=== PATIENT | female | born 1935 | race Caucasian/White ===

== ENCOUNTER 2017-03-20 17:10 | Emergency (ER) | payer MEDICARE, BC ==
[2017-03-20 17:55] VITALS: BP 132/84
[2017-03-20] MEDS ORDERED: Lidocaine 1% 50 ML MDV INJECT ONE (20:43)
[2017-03-20] MEDS ORDERED: Lidocaine 1% 50 ML MDV ONE (20:48)
--- NOTE | 2017-03-20 22:01 | EDM.PDOC ---
<MariumKayleen velez F - Last Filed: 03/21/17 02:36> ED HPI GENERAL MEDICAL PROBLEM - General Chief Complaint: Laceration Stated Complaint: INJURED PINKY ON L HAND Time Seen by Provider: 03/20/17 19:24 - Related Data Allergies Allergy/AdvReac Type Severity Reaction Status Date / Time No Known Allergies Allergy Verified 03/20/17 17:54 Home Meds: Home Meds Digoxin 125 mcg PO DAILY 01/18/15 [History] Furosemide 40 mg PO DAILY 01/18/15 [History] Metoprolol Succinate [Toprol XL] 25 mg PO DAILY 01/18/15 [History] Potassium Chloride 20 meq PO DAILY 01/18/15 [History] Apixaban [Eliquis] 0 mg PO BID 03/20/17 [History] Cephalexin [Keflex] 500 mg PO TID #21 cap 03/20/17 [Rx] Diltiazem HCl [Taztia Xt] 240 mg PO DAILY 03/20/17 [History] ED SKIN PROCEDURES - Laceration/Wound Repair Left Proximal Ventral Finger Lac/Wound length In cm: 4 (left hand ventral 5th finger) Appearance: Subcutaneous, Irregular, Clean Distal NVT: Neuro & Vascular Intact, No Tendon Injury Anesthetic Type: Local Local Anesthesia - Lidocaine (Xylocaine): 1% Plain Local Anesthetic Volume: 4cc Skin Prep: Chlorhexidine (Hibiciens), Saline, Sterile Drape Exploration/Debridement/Repair: Wound Explored, No Foreign Material Found Closed with: Sutures Suture Size: 4-0 # of Sutures: 17 Suture Type: Nylon, Interrupted, Simple Suture Size: 4-0 # of Sutures: 7 Repaired with: Vicryl Sterile Dressing Applied: Nurse Complications: No - Splinting Left Upper Extremity Splint Site: hand and forearm Pre-Procedure NV Status: Normal Post-Procedure NV Status: Normal Splint Material: Other (orthoglass) Splint Design: Gutter (ulnar) Applied & Form Fitted By: Provider, Nurse Provider Post-Splint Application NV Check: NV Status Normal, Good Position Complications: No Course - Vital Signs Last Recorded V/S: Last Vital Signs Temp 98.4 F 03/20/17 17:42 Pulse 53 L 03/20/17 17:42 Resp 12 03/20/17 17:42 BP 132/84 03/20/17 17:42 Pulse Ox 95 03/20/17 17:42 - Orders/Labs/Meds Orders: Active Orders 24 hr Category Date Time Status Hand Comp Min 3V Lt [CR] Stat Exams 03/20/17 19:45 Taken Meds: Medications Discontinued Medications Generic Name Dose Route Start Last Admin Trade Name Carmelita PRN Reason Stop Dose Admin Lidocaine HCl 50 ml 03/20/17 20:43 03/20/17 21:00 Xylocaine 1% INJECT 03/20/17 20:44 50 ml ONETIME ONE Administration Lidocaine HCl Confirm 03/20/17 20:48 03/20/17 20:58 Xylocaine 1% Administered 03/20/17 20:49 Not Given Dose 50 ml .ROUTE .STK-MED ONE Departure - Departure Disposition: Home, Self-Care 01 Clinical Impression: Laceration of left little finger w/o foreign body w/o damage to nail Qualifiers: Encounter type: initial encounter Qualified Code(s): S61.217A - Laceration without foreign body of left little finger without damage to nail, initial encounter Open fracture of proximal phalanx of left little finger Qualifiers: Encounter type: initial encounter Fracture alignment: nondisplaced Qualified Code(s): S62.647B - Nondisplaced fracture of proximal phalanx of left little finger, initial encounter for open fracture - Discharge Information Prescriptions: Cephalexin [Keflex] 500 mg PO TID #21 cap Instructions: Laceration Care, Adult Referrals: Pati Moralse MD [Primary Care Provider] - Fidel Wright MD [Physician] - Forms: ED Department Discharge Additional Instructions: Keep your left hand clean and dry and covered, keep the splint on at all times, call Dr. Wright' office on Wednesday to get an appointment to be seen this week for recheck of the fracture, have the sutures removed in 7-[address] Wright' can take them out as well, take the antibiotics faithfully until they are finished, return to the ER if needed - My Orders Last 24 Hours: My Active Orders 03/20/17 19:45 Hand Comp Min 3V Lt [CR] Stat - Assessment/Plan Last 24 Hours: My Active Orders 03/20/17 19:45 Hand Comp Min 3V Lt [CR] Stat <Phil Campos - Last Filed: 03/21/17 06:58> ED HPI GENERAL MEDICAL PROBLEM - General Source of Information: Reports: Patient, Family History Limitations: Reports: No Limitations - History of Present Illness INITIAL COMMENTS - FREE TEXT/NARRATIVE: This is an 81-year-old female. She was doing her wash and she has a wringer type wash that squeezes the clothes to remove the excess water. Apparently she got her left hand caught in the wringer and she received a laceration to her left fifth finger on the palmar surface. The laceration goes from IP joint down to the MCP joint into the palm. When she arrived there was no active bleeding but obviously a large jagged laceration. She is able to flex her little finger and neurovascular is intact distally. Left Hand Pain Score (Numeric/FACES): 4 Past Medical History Other Musculoskeletal History: ankle, wrist Other Oncologic History: nose Social & Family History - Tobacco Use Smoking Status *Q: Never Smoker - Caffeine Use Caffeine Use: Reports: Tea - Recreational Drug Use Recreational Drug Use: No ED ROS GENERAL - Review of Systems Review Of Systems: See Below Constitutional: Denies: Fever, Chills HEENT: Reports: No Symptoms Respiratory: Reports: No Symptoms Cardiovascular: Reports: No Symptoms Endocrine: Reports: No Symptoms GI/Abdominal: Reports: No Symptoms : Reports: No Symptoms Musculoskeletal: Reports: Other (As per history of present illness) Skin: Reports: Other (As per history of present illness) Neurological: Reports: No Symptoms Psychiatric: Reports: No Symptoms Hematologic/Lymphatic: Reports: No Symptoms ED EXAM, SKIN/RASH Exam: See Below Exam Limited By: No Limitations General Appearance: Alert, WD/WN, No Apparent Distress Ears: Normal External Exam, Other (The patient is hard of hearing) Nose: Normal Inspection Throat/Mouth: Normal Inspection Head: Normocephalic Neck: Supple Respiratory/Chest: No Respiratory Distress Back Exam: Full Range of Motion Extremities: Other (Left hand has a very jagged laceration going from the IP joint down into the palm on the volar surface, rough estimate it appears to be approximately 10 cm, she does have flexion of that little finger, she does have a couple bruises on her other fingers noted but there are very mild, neurovascular is intact distally in all of her digits) Neurological: Alert, Oriented Psychiatric: Normal Affect, Normal Mood Skin: Warm, Dry Course - Radiology Interpretation Free Text/Narrative:: X-ray of the left hand shows a fracture at the base of the proximal phalanx that is nondisplaced - Re-Assessments/Exams Free Text/Narrative Re-Assessment/Exam: 03/21/17 06:57 I spoke to the patient regarding the finger fracture. We'll have to put her on some antibiotics as well as put her in a gutter splint to stabilize that fracture and she is going to follow up with the commission specialist this week for recheck for the fractured he can remove her sutures when there needed to be removed. She understands. Departure - Departure Time of Disposition: 21:53 Condition: Good
--- NOTE | 2017-03-21 12:53 | CR ---
Left hand: Four views of the left hand were obtained. Comparison: No prior hand exam. Joint space narrowing is noted within the wrist compatible with degenerative change. Bone density noted most likely due to old fracture off the distal navicular bone along the lateral side of the wrist. Degenerative change is noted at the CMC joint of the thumb. Joint space narrowing scattered within the MCP joints. More severe joint space narrowing is noted within the DIP and PIP joints. Acute fracture is identified within the base of the proximal phalanx of the fifth digit. No other acute abnormality is appreciated. Osteopenia is noted. Impression: 1. Degenerative change and osteopenia. Old navicular fracture. 2. Acute fracture within the base of the proximal phalanx of the left fifth finger. Diagnostic code #3
== END 2017-03-20 22:30 | disposition home or self-care (01) ==
LOC: JD.ED 17:10
DX: S62.647B Nondisplaced fracture of proximal phalanx of left little finger, initial encounter for open fracture (principal); S61.217A Laceration without foreign body of left little finger without damage to nail, initial encounter; W23.0XXA Caught, crushed, jammed, or pinched between moving objects, initial encounter
CPT/HCPCS: 12002; 12042; 13132; 29125; 73130-26-LT; 73130-LT; 99283-25

== ENCOUNTER 2019-03-13 09:29 | Emergency (ER) | payer MEDICARE, BC ==
[2019-03-13 10:07] VITALS: BP 144/81
[2019-03-13] MEDS ORDERED: Sodium Chloride 0.9% 10 ML Syringe FLUSH PRN (10:33)
--- NOTE | 2019-03-13 11:44 | US ---
Right lower extremity deep venous ultrasound: Duplex and color Doppler imaging was obtained of the right common femoral, proximal greater saphenous, superficial femoral, popliteal, posterior tibial and peroneal veins. Left common femoral vein was also evaluated. Comparison: No prior venous imaging is available. Findings: Normal phasic flow, augmentation and compression are seen. Impression: 1. No evidence of deep venous thrombosis within the right lower extremity or within the left common femoral vein. Diagnostic code #1 This report was dictated in [place] Standard Time
--- NOTE | 2019-03-13 12:21 | CR ---
Chest: Two views of the chest were obtained. Comparison: Prior chest x-ray of 01/18/15. Increased density within right mid and lower lung as well as lesser increased density within the left lung base. Probable small right-sided parapneumonic effusion. Lungs are hyperinflated compatible with emphysematous change. Upper lungs are clear. Heart size is not enlarged. Tortuous thoracic aorta is noted. Bony structures are osteopenic. Scattered compression deformities within the spine with kyphosis. Impression: 1. Probable pneumonia within the right mid and lower lung and left lung base. 2. Probable small right-sided parapneumonic effusion. 3. Emphysematous change and other findings as noted above. Diagnostic code #3 This report was dictated in [place] Standard Time
[2019-03-13] MEDS ORDERED: Potassium Chloride 20 MEQ Tab.ER PO ONE (12:35)
--- NOTE | 2019-03-13 12:45 | EDM.PDOC ---
ED HPI GENERAL MEDICAL PROBLEM - General Chief Complaint: Lower Extremity Injury/Pain Stated Complaint: BOTH LEGS AND FEET SWOLLEN Time Seen by Provider: 03/13/19 10:04 Source of Information: Reports: Patient, Family History Limitations: Reports: Other (Very hard of hearing) - History of Present Illness INITIAL COMMENTS - FREE TEXT/NARRATIVE: The patient presents with her son for bilateral leg swelling. This started on Wednesday. This right leg is worse then the left leg. She has no fever, chills , cough, congestion, runny nose, or chest pain. She has a little shortness of breath. She has no abdominal pain, nausea or vomiting. She does have a history of atrial fibrillation and CHF. She is on lasix 60mg daily and potassium. Onset: Gradual Duration: Day(s): (3) Severity: Moderate Improves with: Reports: None Worsens with: Reports: None Associated Symptoms: Reports: No Other Symptoms - Related Data Allergies Allergy/AdvReac Type Severity Reaction Status Date / Time No Known Allergies Allergy Verified 03/13/19 10:07 Home Meds: Home Meds Furosemide 60 mg PO DAILY 01/18/15 [History] Metoprolol Succinate [Toprol XL] 25 mg PO DAILY 01/18/15 [History] Potassium Chloride 20 meq PO DAILY 01/18/15 [History] Diltiazem HCl [Taztia Xt] 180 mg PO DAILY 03/20/17 [History] Furosemide [Lasix] 80 mg PO DAILY #5 tab 03/13/19 [Rx] Potassium Chloride 40 meq PO DAILY #60 tablet.er 03/13/19 [Rx] Rivaroxaban [Xarelto] 15 mg PO DAILY 03/13/19 [History] Past Medical History Other Musculoskeletal History: ankle, wrist Other Oncologic History: nose Social & Family History - Tobacco Use Smoking Status *Q: Never Smoker - Caffeine Use Caffeine Use: Reports: None - Recreational Drug Use Recreational Drug Use: No Review of Systems - Review of Systems Review Of Systems: See Below Constitutional: Reports: No Symptoms Eyes: Reports: No Symptoms Ears: Reports: No Symptoms Nose: Reports: No Symptoms Mouth/Throat: Reports: No Symptoms Respiratory: Reports: Shortness of Breath. Denies: Cough Cardiovascular: Reports: Edema. Denies: Chest Pain GI/Abdominal: Reports: No Symptoms Genitourinary: Reports: No Symptoms ED EXAM, GENERAL - Physical Exam Exam: See Below Exam Limited By: No Limitations General Appearance: Alert, No Apparent Distress Ears: Normal External Exam Nose: Normal Inspection Head: Atraumatic, Normocephalic Neck: Normal Inspection Respiratory/Chest: No Respiratory Distress, Decreased Breath Sounds. No: Rales Cardiovascular: Regular Rate, Rhythm, No Edema, No Murmur GI/Abdominal: Soft, Non-Tender, No Organomegaly, No Mass Back Exam: Other (Kyphosis) Extremities: Other (Bilateral leg swelling with the right worse then the left) EKG INTERPRETATION EKG Date: 03/13/19 Time: 11:28 Rhythm: A-Fib Rate (Beats/Min): 101 [place]: RAD-Right [place] Deviation QRS: Normal ST-T: Normal QT: Normal Course - Vital Signs Last Recorded V/S: Last Vital Signs Temp 98.1 F 03/13/19 10:05 Pulse Resp 16 03/13/19 10:05 BP 144/81 H 03/13/19 10:05 Pulse Ox 90 L 03/13/19 10:05 - Orders/Labs/Meds Orders: Active Orders 24 hr Category Date Time Status Cardiac Monitoring [RC] . DIRECTED Care 03/13/19 10:33 Active EKG Documentation Completion [RC] STAT Care 03/13/19 10:34 Active Oxygen Therapy [RC] PRN Care 03/13/19 10:34 Active Peripheral IV Care [RC] . DIRECTED Care 03/13/19 10:34 Active Sodium Chloride 0.9% [Saline Flush] Med 03/13/19 10:33 Active 10 ml FLUSH ASDIRECTED PRN Peripheral IV Insertion Adult [OM.PC] Stat Oth 03/13/19 10:33 Ordered Medication Orders Sodium Chloride (Saline Flush) 10 ml FLUSH ASDIRECTED PRN PRN Reason: Keep Vein Open Last Admin: 03/13/19 11:51 Dose: 10 ml Labs: Laboratory Tests 03/13/19 03/13/19 03/13/19 Range/Units 11:26 11:26 11:26 WBC 7.70 (3.98-10.04) K/mm3 RBC 4.50 (3.98-5.22) M/mm3 Hgb 13.8 (11.2-15.7) gm/dl Hct 44.4 (34.1-44.9) % MCV 98.7 H D (79.4-94.8) fl MCH 30.7 (25.6-32.2) pg MCHC 31.1 L (32.2-35.5) g/dl RDW Std Deviation 55.2 H (36.4-46.3) fL Plt Count 292 (182-369) K/mm3 MPV 8.9 L (9.4-12.3) fl Neut % (Auto) 83.1 H (34.0-71.1) % Lymph % (Auto) 7.1 L (19.3-51.7) % [place] % (Auto) 9.1 (4.7-12.5) % Eos % (Auto) 0.6 L (0.7-5.8) Baso % (Auto) 0.1 (0.1-1.2) % Neut # (Auto) 6.39 H (1.56-6.13) K/mm3 Lymph # (Auto) 0.55 L (1.18-3.74) K/mm3 [place] # (Auto) 0.70 H (0.24-0.36) K/mm3 Eos # (Auto) 0.05 (0.04-0.36) K/mm3 Baso # (Auto) 0.01 (0.01-0.08) K/mm3 Sodium 145 (136-145) mEq/L Potassium 2.6 L D (3.5-5.1) mEq/L Chloride 98 (98-107) mEq/L Carbon Dioxide 39 H (21-32) mEq/L Anion Gap 10.6 (5-15) BUN 16 (7-18) mg/dL Creatinine 0.9 (0.55-1.02) mg/dL Est Cr Clr Drug Dosing 36.14 mL/min Estimated GFR (MDRD) 60 (>60) mL/min BUN/Creatinine Ratio 17.8 (14-18) Glucose 99 (83-115) mg/dL Calcium 10.4 H (8.5-10.1) mg/dL Total Bilirubin 0.9 (0.2-1.0) mg/dL AST 27 (15-37) U/L ALT 33 (14-59) U/L Alkaline Phosphatase 136 H (46-116) U/L Troponin I < 0.017 (0.00-0.056) ng/mL NT-Pro-B Natriuret Pep 2587 H (0-450) pg/mL Total Protein 7.4 (6.4-8.2) g/dl Albumin 3.5 (3.4-5.0) g/dl Globulin 3.9 gm/dL Albumin/Globulin Ratio 0.9 L (1-2) Meds: Medications Generic Name Dose Route Start Last Admin Trade Name Freq PRN Reason Stop Dose Admin Sodium Chloride 10 ml 03/13/19 10:33 03/13/19 11:51 Saline Flush FLUSH 10 ml ASDIRECTED PRN Administration Keep Vein Open Discontinued Medications Generic Name Dose Route Start Last Admin Trade Name Freq PRN Reason Stop Dose Admin Potassium Chloride 20 meq 03/13/19 12:35 Klor-Con M20 PO 03/13/19 12:36 ONETIME ONE - Re-Assessments/Exams Free Text/Narrative Re-Assessment/Exam: 03/13/19 12:43 I ordered an IV saline lock, EKG, CXR, and labs. Her EKG shows atrial fibrillation with no acute changes. Her CXR as read by Dr Chun shows probable pneumonia within the right and lower lung and left lung base. Probable small right-sided parapneumonic effusion. Emphysematous change and other findings as noted above. Her CBC looks good. Her K was low at 2.6. Her troponin is negative. Her BNP was elevated at 2587. I do not think she has pneumonia. She has no cough, fever or elevated WBC. I feel this is some CHF. I have ordered some potassium. I do not feel she needs to be admitted but I will go up with her lasix for 5 days and then have her follow up with Dr Morales or one of her partners on Wednesday. 03/13/19 12:52 Departure - Departure Time of Disposition: 12:50 Disposition: Home, Self-Care 01 Condition: Good Clinical Impression: Hypokalemia Congestive heart failure (CHF) Qualifiers: Heart failure type: unspecified Heart failure chronicity: chronic Qualified Code(s): I50.9 - Heart failure, unspecified Atrial fibrillation Qualifiers: Atrial fibrillation type: unspecified Qualified Code(s): I48.91 - Unspecified atrial fibrillation - Discharge Information *PRESCRIPTION DRUG MONITORING PROGRAM REVIEWED*: Not Applicable *COPY OF PRESCRIPTION DRUG MONITORING REPORT IN PATIENT SAMMY: Not Applicable Prescriptions: Furosemide [Lasix] 80 mg PO DAILY #5 tab Potassium Chloride 40 meq PO DAILY #60 tablet.er Referrals: Pati Morales MD [Primary Care Provider] - 1 Week Forms: ED Department Discharge Additional Instructions: Stop the lasix 60mg daily and take the 80mg daily for 5 days. Then go back to the 60mg. Take 40meq of potassium daily. Elevate your legs when you are sitting. Follow up with Dr Morales or one of her partners within a week. Please return if you are worse. Sepsis Event Note - Evaluation Sepsis Screening Result: No Definite Risk - Focused Exam Vital Signs: Vital Signs Temp Resp BP Pulse Ox 03/13/19 10:05 98.1 F 16 144/81 H 90 L Date Exam was Performed: 03/13/19 Time Exam was Performed: 12:45 - My Orders Last 24 Hours: My Active Orders 03/13/19 10:33 Cardiac Monitoring [RC] . DIRECTED Sodium Chloride 0.9% [Saline Flush] 10 ml FLUSH ASDIRECTED PRN Peripheral IV Insertion Adult [OM.PC] Stat 03/13/19 10:34 EKG Documentation Completion [RC] STAT Oxygen Therapy [RC] PRN Peripheral IV Care [RC] . DIRECTED - Assessment/Plan Last 24 Hours: My Active Orders 03/13/19 10:33 Cardiac Monitoring [RC] . DIRECTED Sodium Chloride 0.9% [Saline Flush] 10 ml FLUSH ASDIRECTED PRN Peripheral IV Insertion Adult [OM.PC] Stat 03/13/19 10:34 EKG Documentation Completion [RC] STAT Oxygen Therapy [RC] PRN Peripheral IV Care [RC] . DIRECTED
== END 2019-03-13 13:30 | disposition home or self-care (01) ==
LOC: JD.ED 09:29
DX: I50.9 Heart failure, unspecified (principal); I48.91 Unspecified atrial fibrillation; E87.6 Hypokalemia; M79.89 Other specified soft tissue disorders; Z79.899 Other long term (current) drug therapy; Z79.01 Long term (current) use of anticoagulants
CPT/HCPCS: 36415; 71046; 71046-26; 80053; 83880; 84484; 85025; 93005; 93010; 93971-26-RT; 93971-RT; 99283-25; 99284

== ENCOUNTER 2019-04-11 18:14 | Emergency (ER) | payer MEDICARE, BC ==
--- NOTE | 2019-04-11 18:41 | EDM.PDOC ---
ED HPI GENERAL MEDICAL PROBLEM - General Chief Complaint: CPR in Progress Stated Complaint: [facility] Time Seen by Provider: 04/11/19 18:15 Source of Information: Reports: EMS History Limitations: Reports: Other (Patient undergoing CPR currently) - History of Present Illness INITIAL COMMENTS - FREE TEXT/NARRATIVE: This is an 83-year-old female with past medical history of ischemic heart failure and atrial fibrillation who was brought to the ED via EMS after being called by patient's son. As per EMS son witnessed patient having a cardiac arrest, he initiated CPR but stopped and called EMS, approximately 20 minutes later EMS arrived. Found patient cold to touch with dilated pupils, immediately started CPR and brought patient over to ED. Patient received 4 rounds of epinephrine en route. - Related Data Allergies Allergy/AdvReac Type Severity Reaction Status Date / Time No Known Allergies Allergy Verified 03/13/19 10:07 Home Meds: Home Meds Furosemide 60 mg PO DAILY 01/18/15 [History] Metoprolol Succinate [Toprol XL] 25 mg PO DAILY 01/18/15 [History] Potassium Chloride 20 meq PO DAILY 01/18/15 [History] Diltiazem HCl [Taztia Xt] 180 mg PO DAILY 03/20/17 [History] Furosemide [Lasix] 80 mg PO DAILY #5 tab 03/13/19 [Rx] Potassium Chloride 40 meq PO DAILY #60 tablet.er 03/13/19 [Rx] Rivaroxaban [Xarelto] 15 mg PO DAILY 03/13/19 [History] Past Medical History Other Musculoskeletal History: ankle, wrist Other Oncologic History: nose Social & Family History - Caffeine Use Caffeine Use: Reports: None ED ROS GENERAL - Review of Systems Review Of Systems: Unable To Obtain Reason Not Obtained: Undergoing CPR and intubated ED EXAM, CPR - Physical Exam Exam: See Below Limited By: Unresponsive, Other (undergoing CPR) Eye Exam: Bilateral Eye: Abnormal Pupil (Dilated > 4mm) Throat/Mouth: Other (intubated) Cardiovascular: Other (No heart beat, no peripheral or central pulses are palpated) 0: Right Carotid, Femoral (R) Neurological: Unresponsive Departure - Departure Time of Disposition: 18:49 Disposition: 20 Preliminary Cause of *Q: Cardiac Arrest Clinical Impression: Cardiac arrest - Discharge Information *PRESCRIPTION DRUG MONITORING PROGRAM REVIEWED*: Not Applicable *COPY OF PRESCRIPTION DRUG MONITORING REPORT IN PATIENT SAMMY: Not Applicable Critical Care Note - Critical Care Note Total Time (mins): 6 Comments: Reid was on patient upon arrival to the emergency department Patient had dilated pupils, >4mm No peripheral or central pulses were palpated Rhythm strip was asystole - Problem List & Annotations (1) Cardiorespiratory arrest SNOMED Code(s): 953390966 Code(s): I46.9 - CARDIAC ARREST, CAUSE UNSPECIFIED Status: Acute (2) Hypoxia of brain SNOMED Code(s): 473811522 Code(s): G93.1 - ANOXIC BRAIN DAMAGE, NOT ELSEWHERE CLASSIFIED Status: Acute (3) Atrial fibrillation SNOMED Code(s): 95074163 Code(s): I48.91 - UNSPECIFIED ATRIAL FIBRILLATION Status: Chronic Qualifiers: Atrial fibrillation type: unspecified Qualified Code(s): I48.91 - Unspecified atrial fibrillation (4) Congestive heart failure (CHF) SNOMED Code(s): 48690532 Code(s): I50.9 - HEART FAILURE, UNSPECIFIED Status: Chronic Qualifiers: Heart failure type: unspecified Heart failure chronicity: chronic Qualified Code(s): I50.9 - Heart failure, unspecified - Problem List Review Problem List Initiated/Reviewed/Updated: Yes - Assessment/Plan Assessment:: Once in the ED patient was found to be in asystole, with pupils larger than 4mm , SatO2 around 65% with end tidal CO2 of 0. No pulse was found. Time of was declared at 18:18.
== END 2019-04-11 19:45 | disposition expired ==
LOC: JD.ED 18:14
DX: I46.9 Cardiac arrest, cause unspecified (principal); I50.9 Heart failure, unspecified; I48.91 Unspecified atrial fibrillation; Z79.899 Other long term (current) drug therapy; Z79.01 Long term (current) use of anticoagulants
CPT/HCPCS: 92950; 99285-25